=== PATIENT | female | born 1955 | race Caucasian/White ===

== ENCOUNTER 2017-12-13 21:40 | Emergency (ER) | payer MEDICARE ==
[~2017-12-13] VITALS: Ht 160 cm; Wt 136.1 kg
--- NOTE | 2017-12-13 22:46 | Diagnostic Imaging Report ---
EXAM: CHEST 2 VIEWS, PA and lateral ORDER DATE: 12/13/2017 10:12 PM TIME STAMP ON EXAM: 2218 hours INDICATION: Cough, congestion COMPARISON: None FINDINGS: LINES/TUBES: None LUNGS: Right lower lobe atelectasis. PLEURA: No effusions or pneumothorax. HEART AND MEDIASTINUM: Normal size and contour. BONES AND SOFT TISSUES: No acute findings. IMPRESSION: Right lower lobe atelectasis. This could represent pneumonia in the appropriate clinical setting. Signed by: Dr. Esther Hudson M.D. on 12/13/2017 10:42 PM
[2017-12-14] MEDS ORDERED: CEFTRIAXONE SOD 1 GM VIAL IV SCH (01:00)
[2017-12-14 01:04] LABS: BILIRUBIN,URINE NEGATIVE (NEGATIVE); KETONES,URINE NEGATIVE (NEGATIVE); LEUKOCYTE ESTERASE ,URINE TRACE (NEGATIVE); PROTEIN,URINE DIPSTICK NEGATIVE (NEGATIVE); URINE UROBILINOGEN 0.2 mg/dL (0.2 - 1)
[2017-12-14 01:06] LABS: CLARITY,URINE CLOUDY (CLEAR); COLOR,URINE YELLOW (YELLOW); NITRITE,URINE POSITIVE (NEGATIVE)
[2017-12-14 01:16] LABS: BACTERIA,URINE MANY /HPF; EPITHELIAL CELLS,URINE FEW /LPF; RBC,URINE 0-5 /HPF (0-5); WBC,URINE (MAN) 21-50 /HPF (0-5)
[2017-12-14] MEDS ORDERED: ALBUTEROL SULF 0.083% NEB SOLN 3 ML NEB NEB STA (01:27)
[2017-12-14] MEDS ORDERED: IPRATROPIUM BROMIDE 0.02% 2.5 ML NEB NEB ONE (01:30)
[2017-12-14 01:41] LABS: BASOPHILS % 0.7 % (0.0-1.0); EOSINOPHILS # (AUTO) 0.1 (0.0-0.4); EOSINOPHILS % 1.4 % (0.0-6.0); HEMOGLOBIN 13.3 g/dL (12.0-16.0); LYMPHOCYTES # (AUTO) 1.2 (1.0-3.2); MEAN CORPUSCULAR HEMOGLOBIN 30.2 pg (28-32); MEAN CORPUSCULAR HGB CONC 31.7 g/dL (31-35); MEAN CORPUSCULAR VOLUME 95.2 fL (81-99); MONOCYTES # (AUTO) 0.5 (0.2-0.8); MONOCYTES % 10.5 % (4.4-11.3); NEUTROPHILS # (AUTO) 2.5 (2.1-6.9); NEUTROPHILS % 58.2 % (38.7-80.0); PLATELET COUNT 234 x10e3/uL (140-360); RED BLOOD COUNT 4.41 x10e6/uL (3.6-5.1); RED CELL DISTRIBUTION WIDTH 12.3 % (11.7-14.4)
[2017-12-14 01:51] LABS: INR 0.91; PROTHROMBIN TIME 12.7 seconds (11.9-14.5)
[2017-12-14 01:52] LABS: PARTIAL THROMBOPLASTIN TIME 34.9 seconds (23.8-35.5)
[2017-12-14 02:00] LABS: ALBUMIN 3.7 g/dL (3.5-5.0); ALBUMIN/GLOBULIN RATIO 1.2 (0.8-2.0); ANION GAP 14.1 mmol/L (8-16); CALCIUM 8.5 mg/dL (8.4-10.2); CREATININE, SERUM 1.1 mg/dL (0.57-1.11); MAGNESIUM 2.3 MG/DL (1.3-2.1); POTASSIUM 4.1 mmol/L (3.5-5.1)
[2017-12-14] MEDS ORDERED: AZITHROMYCIN 500MG/NS 250 ML 250 ML IV SCH (02:00)
[2017-12-14 02:06] LABS: CREATINE KINASE MB 0.8 ng/mL (0.00-5.00); TROPONIN I 0.002 ng/mL (0-0.300)
== END 2017-12-14 04:23 | disposition home or self-care (01) ==
LOC: ER 21:40
DX: R50.9 Fever, unspecified (principal); R05 Cough; J20.9 Acute bronchitis, unspecified; N30.90 Cystitis, unspecified without hematuria
CPT/HCPCS: 36415; 71020; 80053; 81001; 82550; 82553; 83605; 83735; 84484; 85025; 85610; 85730; 87040; 87086; 87186; 87400; 94640; 99284; J0696; 71046